=== PATIENT | female | born 1955 | race Caucasian/White ===

== ENCOUNTER 2019-11-20 10:53 | Day surgery (SDC) | payer MEDICARE, MEDICAID ==
[~2019-11-20] VITALS: Ht 160 cm; Wt 90.9 kg
[2019-11-20 11:10] VITALS: BP 141/86
[2019-11-20] MEDS ORDERED: CALC-855 PO (11:27)
[2019-11-20] MEDS ORDERED: ESCI-10 PO (11:27)
[2019-11-20] MEDS ORDERED: HCTZ25T PO (11:28)
[2019-11-20] MEDS ORDERED: ASPI-611 PO (11:29)
[2019-11-20] MEDS ORDERED: MIDAZolam 5mg/5ml vial ONE (11:44)
[2019-11-20] MEDS ORDERED: fentaNYL/PF 50MCG/1 ML 2ML syringe ONE (11:44)
[2019-11-20] MEDS ORDERED: LIDOcaine Viscous 15ml cup ONE (11:44)
[2019-11-20 12:12] VITALS: BP 120/69
[2019-11-20 12:22] VITALS: BP 147/74
[2019-11-20 12:32] VITALS: BP 133/77
[2019-11-20 12:42] VITALS: BP 130/74
== END 2019-11-20 13:00 | disposition home or self-care (01) ==
LOC: GI LAB 10:53
PROVIDERS: ATTEND Internal Medicine Gastroenterology
DX: I85.00 Esophageal varices without bleeding (principal); K20.8 Other esophagitis; K22.70 Barrett's esophagus without dysplasia; K74.60 Unspecified cirrhosis of liver; K22.8 Other specified diseases of esophagus
CPT/HCPCS: 43239; G0500; J2250; J3010; J7040; 88305; 99152; A4620